=== PATIENT | male | born 1990 | race Caucasian/White ===

== ENCOUNTER 2016-10-01 17:59 | Emergency (ER) | payer OTHER ==
[2016-10-01 18:12] VITALS: BP 144/88; PULSE 73; TEMP 97.6; BMI 28.8
[2016-10-01] MEDS ORDERED: KETOROLAC TROMETHAMINE 60 MG/2 ML VIAL IM ONE (19:05)
[2016-10-01] MEDS ORDERED: KETOROLAC TROMETHAMINE 60 MG/2 ML VIAL ONE (19:10)
--- NOTE | 2016-10-01 19:12 | PDOC ---
History of Present Illness - General Chief Complaint: Pain Stated Complaint: PAIN Time Seen by Provider: 10/01/16 18:43 History Source: Patient Exam Limitations: No Limitations - History of Present Illness Initial Comments: 10/01/16 19:11 Chief complaint: Left chest wall pain with movement and shoveling today. History of present illness: 10/01/16 19:14 He is a 26-year-old male with no significant medical problems here today complaining of left medial chest wall pain when shoveling today. Patient denies any cough. Patient reports that he felt slightly short of breath when he has the pain which is only with movement of chest wall. Patient denies any palpitations. He denies nausea vomiting or diarrhea or any fever. Patient reports that he felt this pain 2 nights ago also patient reports that he had been lifting up his child last 5 years old. 10/01/16 19:15 10/01/16 19:15 Timing/Duration: intermittent Severity: moderate Associated Symptoms: reports: chest pain (left sided chest wall pain ), shortness of breath (when he has the pain slight ) Past History - Past Medical History Allergies/Adverse Reactions: Allergies Allergy/AdvReac Type Severity Reaction Status Date / Time No Known Allergies Allergy Verified 10/01/16 18:00 Home Medications: Ambulatory Orders Naproxen [Naprosyn -] 500 mg PO BID PRN #14 tablet MDD 2 10/01/16 Other medical history: none - Immunization History Immunization Up to Date: Yes - Psycho/Social/Smoking Cessation Hx Anxiety: No Suicidal Ideation: No Smoking History: Never smoked Have you smoked in the past 12 months: No Information on smoking cessation initiated: No Hx Alcohol Use: No Drug/Substance Use Hx: No Substance Use Type: None Review of Systems - Review of Systems Able to Perform ROS?: Yes Constitutional: No: Symptoms Reported HEENTM: No: Symptoms Reported Respiratory: Yes: Shortness of Breath (when he has the chest pain slight only ) . No: SOB with Exertion, SOB at Rest, Stridor, Wheezing, Productive cough Cardiac (ROS): Yes: Chest Pain (left chest medial wall with palpation or movement). No: Symptoms Reported, Palpitations ABD/GI: No: Symptoms Reported : No: Symptoms Reported Musculoskeletal: No: Symptoms Reported Integumentary: No: Symptoms Reported Neurological: No: Symptoms reported *Physical Exam - Vital Signs Last Vital Signs Temp Pulse Resp BP Pulse Ox 97.6 F 73 18 144/88 100 10/01/16 18:00 10/01/16 18:00 10/01/16 18:00 10/01/16 18:00 10/01/16 18:00 - Physical Exam General Appearance: Yes: Appropriately Dressed Neck: negative: Lymphadenopathy (R), Lymphadenopathy (L) Respiratory/Chest: positive: Chest Tender (medial left chest wall discomfort with palpitation to wall), Lungs Clear, Normal Breath Sounds. negative: Respiratory Distress Cardiovascular: positive: Regular Rhythm, Regular Rate, S1, S2 Musculoskeletal: positive: Normal Inspection. negative: CVA Tenderness, CVA Tenderness (R), CVA Tenderness (L) Extremity: positive: Normal Capillary Refill, Normal Inspection, Normal Range of Motion. negative: Tender Integumentary: positive: Normal Color Neurologic: positive: Alert, Normal Response Heart Score/ECG Review - ECG Impressions Comment:: 10/01/16 19:18 EKG reviewed by MD Medical Decision Making - Medical Decision Making 10/01/16 19:15 10/01/16 19:15 He is a 26-year-old male with no significant medical problems here today complaining of left medial chest wall pain when shoveling today. Patient denies any cough. Patient reports that he felt slightly short of breath when he has the pain which is only with movement of chest wall. Patient denies any palpitations. He denies nausea vomiting or diarrhea or any fever. Patient reports that he felt this pain 2 nights ago also patient reports that he had been lifting up his child last 5 years old. He is not suspicious for a PE no tachycardia. No lower leg edema no recent surgeries. Left chest wall discomfort 10/01/16 19:17 acetaminophen 650 mg po now EKG reviewed by MD *DC/Admit/Observation/Transfer Diagnosis at time of Disposition: Acute chest wall pain - Discharge Dispostion Disposition: HOME Condition at time of disposition: Stable - Prescriptions Prescriptions: Naproxen [Naprosyn -] 500 mg PO BID PRN #14 tablet MDD 2 PRN Reason: Pain - Patient Instructions Additional Instructions: Any strenuous activities or exercise Return to emergency room if symptoms worsen any difficulty breathing Do not eat and lie down for at least 2 hours Follow-up with your primary care provider as soon as possible Patient voiced understanding of discharge instructions and all questions were answered
[2016-10-01] MEDS ORDERED: ACETAMINOPHEN 325 MG TABLET (FP) PO ONE (19:13)
[2016-10-01] MEDS ORDERED: ACETAMINOPHEN 325 MG TABLET (FP) ONE (19:16)
--- NOTE | 2016-10-03 10:25 | EKG ---
Test Reason : Blood Pressure : / mmHG Vent. Rate : 075 BPM Atrial Rate : 075 BPM P-R Int : 146 ms QRS Dur : 092 ms QT Int : 366 ms P-R-T Axes : 056 062 028 degrees QTc Int : 408 ms NORMAL SINUS RHYTHM WITH SINUS ARRHYTHMIA NORMAL ECG WHEN COMPARED WITH ECG OF 09-MAY-2016 06:04, NO SIGNIFICANT CHANGE WAS FOUND Confirmed by SAMMY HINES MD ([id number]) on 10/03/2016 10:25:31 AM Referred By: Confirmed By:SAMMY HINES MD
== END 2016-10-01 20:16 | disposition home or self-care (01) ==
LOC: JER 17:59 → JERFT 17:59
PROC: 3E0233Z Introduction of Anti-inflammatory into Muscle, Percutaneous Approach (ICD-10-PCS; principal; 2016-10-01)
DX: R07.89 Other chest pain (principal); X50.0XXA Overexertion from strenuous movement or load, initial encounter; X50.9XXA Other and unspecified overexertion or strenuous movements or postures, initial encounter; Y93.H1 Activity, digging, shoveling and raking; Y92.89 Other specified places as the place of occurrence of the external cause; Y99.8 Other external cause status
CPT/HCPCS: 93005; 93010; 96372; 99281-25

== ENCOUNTER → 2016-11-26 | Emergency (ER) | payer OTHER ==
[~2016-11-26] MED LIST: ACETAMINOPHEN 325 MG TABLET (FP) ONE; ACETAMINOPHEN 325 MG TABLET (FP) PO ONE
[2016-11-26 20:42] VITALS: BP 107/72; PULSE 69; TEMP 98.5; BMI 28.1
--- NOTE | 2016-11-26 21:36 | PDOC ---
History of Present Illness - General History Source: Patient Exam Limitations: No Limitations <Edgard Prado - Last Filed: 11/26/16 21:36> - General History Source: Patient, Old Records Exam Limitations: No Limitations - History of Present Illness Initial Comments: 11/26/16 22:02 The patient is a 26 year old male, with no significant past medical history, who presents to the emergency department with intermittent left sided chest pain with some mild shortness of breath. The patient reports that he has been intermittently experiencing this pain for the past 2 years. This patient was most recently seen in this ED on 10/01/2016 with similar symptoms, was seen and discharged home on Naproxen which he states helped his symptoms significantly. 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 The patient denies a past history or family history of heart disease or cardiac related issues. The patient denies any trauma. The patient denies fever , chills, cough, nausea or vomiting. Allergies: None reported. Past Surgical History: None reported. Social History: Non smoker. Social alcohol consumption. Denies drug use. PCP: Dr. Cruz <Bria Khan - Last Filed: 11/26/16 22:08> - General Chief Complaint: Shortness of Breath Stated Complaint: SOB Time Seen by Provider: 11/26/16 20:57 Past History - Immunization History Immunization Up to Date: Yes - Psycho/Social/Smoking Cessation Hx Anxiety: No Suicidal Ideation: No Smoking History: Never smoked Have you smoked in the past 12 months: No Information on smoking cessation initiated: No Hx Alcohol Use: Yes (social) Drug/Substance Use Hx: No Substance Use Type: None <Edgard Prado - Last Filed: 11/26/16 21:36> <Bria Khan - Last Filed: 11/26/16 22:08> - Past Medical History Allergies/Adverse Reactions: Allergies Allergy/AdvReac Type Severity Reaction Status Date / Time No Known Allergies Allergy Verified 11/26/16 20:40 Home Medications: Ambulatory Orders Naproxen [Naprosyn -] 500 mg PO BID PRN #20 tablet MDD 2 11/26/16 Review of Systems - Review of Systems Able to Perform ROS?: Yes Comments:: 11/26/16 21:51 GENERAL/CONSTITUTIONAL: No fever or chills. No weakness. HEAD, EYES, EARS, NOSE AND THROAT: No change in vision. No ear pain or discharge. No sore throat. CARDIOVASCULAR: +Chest pain, shortness of breath. RESPIRATORY: No cough, wheezing, or hemoptysis. GASTROINTESTINAL: No nausea, vomiting, diarrhea or constipation. GENITOURINARY: No dysuria, frequency, or change in urination. MUSCULOSKELETAL: No joint or muscle swelling or pain. No neck or back pain. SKIN: No rash. NEUROLOGIC: No headache, vertigo, loss of consciousness, or change in strength/ sensation. ENDOCRINE: No increased thirst. No abnormal weight change. HEMATOLOGIC/LYMPHATIC: No anemia, easy bleeding, or history of blood clots. ALLERGIC/IMMUNOLOGIC: No hives or skin allergy. <Bria Khan - Last Filed: 11/26/16 22:08> *Physical Exam - Vital Signs Last Vital Signs Temp Pulse Resp BP Pulse Ox 98.5 F 69 18 107/72 98 11/26/16 20:40 11/26/16 20:40 11/26/16 20:40 11/26/16 20:40 11/26/16 20:40 <Edgard Prado - Last Filed: 11/26/16 21:36> - Vital Signs Last Vital Signs Temp Pulse Resp BP Pulse Ox 98.5 F 69 18 107/72 98 11/26/16 20:40 11/26/16 20:40 11/26/16 20:40 11/26/16 20:40 11/26/16 20:40 - Physical Exam Comments: 11/26/16 21:50 GENERAL: Awake, alert, and fully oriented, in no acute distress. HEAD: No signs of trauma. EYES: PERRLA, EOMI, sclera anicteric, conjunctiva clear. ENT: Auricles normal inspection, hearing grossly normal, nares patent, oropharynx clear without exudates. Moist mucosa. NECK: Normal ROM, supple, no lymphadenopathy, JVD, or masses. LUNGS: Breath sounds equal, clear to auscultation bilaterally. No wheezes, and no crackles. HEART: Regular rate and rhythm, normal S1 and S2, no murmurs, rubs or gallops. CHEST: Reproducible tenderness of the left anterior chest. ABDOMEN: Soft, nontender, normoactive bowel sounds. No guarding, no rebound. No masses. EXTREMITIES: Normal range of motion, no edema. No clubbing or cyanosis. No cords , erythema, or tenderness. NEUROLOGICAL: Cranial nerves II through XII intact. Normal speech, normal gait. SKIN: Warm, dry, normal turgor, no rashes or lesions noted. <Bria Khan - Last Filed: 11/26/16 22:08> Heart Score/ECG Review - History History: Slightly suspicious - Electrocardiogram EKG: Normal - Age Age: </= 45 - Risk Factors Based on the list above the patient has:: No risk factors known #1 ECG reviewed & interpreted by me at: 20:50 11/26/16 21:32 NSR 66, no std/josias, normal axis, normal intervals, QTC 410 msec. Normal ECG <Edgard Prado - Last Filed: 11/26/16 21:36> ED Treatment Course - Medications Given in the ED: ED Medications Discontinued Medications Generic Name Dose Route Start Last Admin Trade Name Freq PRN Reason Stop Dose Admin Acetaminophen 975 mg 11/26/16 21:31 11/26/16 21:34 Tylenol - PO 11/26/16 21:32 975 mg ONCE ONE Administration <Bria Khan - Last Filed: 11/26/16 22:08> Medical Decision Making - Medical Decision Making 11/26/16 21:32 A portion of this note was documented by scribe services under my direction. I have reviewed the details of the note, within reason, and agree with the documentation with the following case summary and management plan written by me. Patient treated in the ED. Nursing notes are reviewed and incorporated into the medical decision-making. Vital signs reviewed. Peripheral IV access obtained by the nurse, laboratory studies are drawn and sent, reviewed and interpreted by myself. Vital Signs Temp Pulse Resp BP Pulse Ox 98.5 F 69 18 107/72 98 11/26/16 20:40 11/26/16 20:40 11/26/16 20:40 11/26/16 20:40 11/26/16 20:40 26-year-old male patient with no past medical history presents with atypical chest pain. Patient reports that he's been having this pain for over 2 years and is intermittent with no exertional component. 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 Patient notes that he was doing nothing particular when he felt this reproducible left-sided chest pain with some shortness of breath that improved with 800 mg ibuprofen. He denies any smoking history. Denies any family history of cardiac disease. Reports that this pain comes and goes and that he has seen his primary care physician reported that this is atypical. Prior visit to the immersed department demonstrates atypical chest pain. I agree. This is likely muscle skeletal given the reproducible nature. The patient 's EKG is normal. I instructed the patient that he may benefit from physical therapy and should follow with his primary care physician. We'll give a prescription of naproxen have the patient follow-up with their primary care physician. I discussed the physical exam findings, ancillary test results and final diagnoses with the patient. I answered all of the patient's questions. The patient was satisfied with the care received and felt comfortable with the discharge plan and treatment plan. The patient will call their primary care physician within 24 hours to arrange follow-up and will return to the Emergency Department with any new, persistant or worsening symptoms. <Edgard Prado - Last Filed: 11/26/16 21:36> *DC/Admit/Observation/Transfer - Discharge Dispostion Admit: No <Edgard Prado - Last Filed: 11/26/16 21:36> - Attestations Scribe Attestion: 11/26/16 21:47 Documentation prepared by Bria Khan, acting as medical secretary for Edgard Prado MD. <Bria Khan - Last Filed: 11/26/16 22:08> Diagnosis at time of Disposition: Acute chest wall pain - Discharge Dispostion Disposition: HOME Condition at time of disposition: Stable - Prescriptions Prescriptions: Naproxen [Naprosyn -] 500 mg PO BID PRN #20 tablet MDD 2 PRN Reason: Pain - Referrals Referrals: Maxim Cruz [Primary Care Provider] - - Patient Instructions Printed Discharge Instructions: DI for Atypical Chest Pain, DI for Musculoskeletal Pain Additional Instructions: This is likely muscle skeletal pain. Please take 500 mg of naproxen every 12 hours needed for pain. Please follow-up with your primary care physician. You may need develops a stretching exercise or potentially physical therapy.
--- NOTE | 2016-11-28 17:16 | EKG ---
Test Reason : Blood Pressure : / mmHG Vent. Rate : 066 BPM Atrial Rate : 066 BPM P-R Int : 154 ms QRS Dur : 096 ms QT Int : 392 ms P-R-T Axes : 063 079 050 degrees QTc Int : 410 ms POOR DATA QUALITY, INTERPRETATION MAY BE ADVERSELY AFFECTED NORMAL SINUS RHYTHM WITH SINUS ARRHYTHMIA NORMAL ECG WHEN COMPARED WITH ECG OF 01-OCT-2016 18:05, NO SIGNIFICANT CHANGE WAS FOUND Confirmed by HALLIE LIN MD ([id number]) on 11/28/2016 5:16:24 PM Referred By: Confirmed By:HALLIE LIN MD
== END | disposition home or self-care (01) ==
LOC: JER 20:28
DX: R07.89 Other chest pain (principal)
CPT/HCPCS: 93005; 93010; 99281-25

== ENCOUNTER 2016-12-15 21:42 | Emergency (ER) | payer OTHER ==
[2016-12-15 21:56] VITALS: BP 126/83; PULSE 55; TEMP 97.9; BMI 29.2
== END 2016-12-15 23:08 | disposition home or self-care (01) ==
LOC: SUPCPDRO 21:42 → JERFT 21:42
DX: J45.909 Unspecified asthma, uncomplicated (principal)
CPT/HCPCS: 99281-25

== ENCOUNTER 2017-02-05 19:03 | Emergency (ER) | payer OTHER ==
[2017-02-05 19:16] VITALS: TEMP 98; BMI 24.3
--- NOTE | 2017-02-05 19:36 | PDOC ---
History of Present Illness - General History Source: Patient Exam Limitations: No Limitations - History of Present Illness Initial Comments: 02/05/17 20:02 Patient is a 27 year old male with no significant past medical history who presents to the ED with chest pain, back pain and dizziness. Patient reports intermittent chest pain localized to the left upper chest, 6/10, non pleuritic, exacerbated by sitting down. Patient notes that the back pain is localized to the left upper back that is constant and started yesterday. Patient states that he developed dizziness today. Patient states that he had a colonoscopy done yesterday and was told he has hemorrhoids, patient states that he had the following symptoms before the colonoscopy. He denies taking any tylenol or advil to alleviate the symptoms. He denies fever, chills, or cough. HPI obtained using sound effects technician [id number]. <Carissa Garcias - Last Filed: 02/05/17 20:02> - General History Source: Patient Exam Limitations: No Limitations <Gali Garcia - Last Filed: 02/05/17 21:27> - General Chief Complaint: Chest Pain Stated Complaint: BACK PAIN Time Seen by Provider: 02/05/17 19:34 Past History <Carissa Garcias - Last Filed: 02/05/17 20:02> - Past Medical History Asthma: Yes GI Disorders: Yes (Fatty liver?) HTN: Yes (Borderline) Hypercholesterolemia: Yes (Borderline) - Immunization History Immunization Up to Date: Yes - Psycho/Social/Smoking Cessation Hx Anxiety: No Suicidal Ideation: No Smoking History: Never smoked Have you smoked in the past 12 months: No Information on smoking cessation initiated: No Hx Alcohol Use: No Drug/Substance Use Hx: No Substance Use Type: None <Gali Garcia - Last Filed: 02/05/17 21:27> - Past Medical History Allergies/Adverse Reactions: Allergies Allergy/AdvReac Type Severity Reaction Status Date / Time No Known Allergies Allergy Verified 02/05/17 19:11 Home Medications: Ambulatory Orders NK [No Known Home Medication] 02/05/17 Review of Systems - Review of Systems Able to Perform ROS?: Yes Comments:: 02/05/17 20:03 GENERAL/CONSTITUTIONAL: No: fever, chills, weakness, loss of appetite. HEAD, EYES, EARS, NOSE AND THROAT: No: change in vision, ear pain, discharge, sore throat, throat swelling. CARDIOVASCULAR: chest pain No: lightheadedness, palpitations, syncope RESPIRATORY: No: cough, shortness of breath, wheezing, hemoptysis, stridor. GASTROINTESTINAL: No: nausea, vomiting, abdominal cramping, diarrhea, rectal bleeding, constipation. GENITOURINARY: No: dysuria, hematuria, frequency, urgency, flank pain. MUSCULOSKELETAL: back pain. No: neck pain, joint pain, muscle swelling or pain SKIN: No: lesions, pallor, rash or easy bruising. NEUROLOGIC: dizziness. No: headache, vertigo, paresthesias, weakness ENDOCRINE: No: unexplained weight gain or loss HEMATOLOGIC/LYMPHATIC: No: anemia, easy bleeding, swelling nodes <Carissa Garcias - Last Filed: 02/05/17 20:02> *Physical Exam - Vital Signs Last Vital Signs Temp Pulse Resp BP Pulse Ox 98.0 F 71 19 140/77 100 02/05/17 19:12 02/05/17 19:12 02/05/17 19:12 02/05/17 19:12 02/05/17 19:12 - Physical Exam Comments: 02/05/17 20:04 GENERAL: The patient is in no acute distress. HEAD: Normal with no signs of trauma. EYES: PERRLA, EOMI, sclera anicteric, conjunctiva clear. ENT: Ears normal, nares patent, oropharynx clear without exudates. Moist mucous membranes. NECK: Normal range of motion, supple without lymphadenopathy, JVD, or masses. LUNGS: Breath sounds equal, clear to auscultation bilaterally. No wheezes, and no crackles. HEART:Regular rate and rhythm, normal S1 and S2 without murmur, rub or gallop. ABDOMEN: Soft, nontender, normoactive bowel sounds. No guarding, no rebound. EXTREMITIES: Normal range of motion, no edema. No clubbing or cyanosis. No erythema, or tenderness. NEUROLOGICAL: Cranial nerves II through XII grossly intact. Normal speech. No focal neurological deficits. MUSCULOSKELETAL: Back nontender to palpation, no CVA tenderness SKIN: Warm, Dry, normal turgor, no rashes or lesions noted. <Carissa Garcias - Last Filed: 02/05/17 20:02> - Vital Signs Last Vital Signs Temp Pulse Resp BP Pulse Ox 98.0 F 71 19 140/77 100 02/05/17 19:12 02/05/17 19:12 02/05/17 19:12 02/05/17 19:12 02/05/17 19:12 <Gali Garcia - Last Filed: 02/05/17 21:27> Heart Score/ECG Review #1 ECG reviewed & interpreted by me at: 20:06 General ECG Interpretation: Sinus Rhythm, Normal Rate, Normal Intervals, No acute ischemic changes <Gali Garcia - Last Filed: 02/05/17 21:27> ED Treatment Course - LABORATORY CBC & Chemistry Diagram: 02/05/17 20:09 02/05/17 20:09 <Gali Garcia - Last Filed: 02/05/17 21:27> Medical Decision Making - Medical Decision Making 02/05/17 19:35 A portion of this note was documented by scribe services under my direction. I have reviewed the details of the note, within reason, and agree with the documentation with the following case summary and management plan written by me. 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 Will do: CXR Blood pressure both arms EKG Will give motrin for pain Will re assess PERC score negative, I do not believe this is a PE 02/05/17 20:01 02/05/17 20:06 BP: Right arm - 118/69 Left arm - 126/84 pulse 57 02/05/17 20:40 Laboratory Tests 02/05/17 20:09 WBC 8.1 Hgb 14.5 Hct 43.3 Plt Count 154 Neutrophils % 50.9 Lymphocytes % 35.0 02/05/17 21:20 02/05/17 21:20 Laboratory Tests 02/05/17 20:09 Sodium 141 Potassium 4.0 Chloride 104 Carbon Dioxide 26 BUN 17 D Creatinine 0.9 Random Glucose 89 D Creatine Kinase 256 D CK-MB (CK-2) 1.502 Troponin I < 0.02 CXR: no consolidation, no effusion, no pneumothorax Will discharge to home Pt to follow up with PMD I discussed the physical exam findings, ancillary test results and final diagnoses with the patient. I answered all of the patient's questions. The patient was satisfied with the care received and felt comfortable with the discharge plan and treatment plan. The patient will call their primary care physician within 24 hours to arrange follow-up and will return to the Emergency Department with any new, persistent or worsening symptoms. <Gali Garcia - Last Filed: 02/05/17 21:27> *DC/Admit/Observation/Transfer - Attestations Scribe Attestion: 02/05/17 20:05 Documentation prepared by TWYLA Danielle, acting as medical file clerk for Gali Garcia MD. <Carissa Garcias - Last Filed: 02/05/17 20:02> - Discharge Dispostion Admit: No <Gali Garcia - Last Filed: 02/05/17 21:27> Diagnosis at time of Disposition: Chest pain Qualifiers: Chest pain type: unspecified Qualified Code(s): R07.9 - Chest pain, unspecified - Discharge Dispostion Disposition: HOME Condition at time of disposition: Stable - Referrals Referrals: Maxim Cruz [Primary Care Provider] - - Patient Instructions Printed Discharge Instructions: DI for Atypical Chest Pain, DI for Chest Pain Additional Instructions: Joe por venir a la perla de emergencias esta noche [employer] Por favor, siga con mckee mdico de atencin primaria Si tiene dolor, considere radha motrin o tylenol para el dolor Puede volver a la perla de emergencias para cualquier otra preocupacin o queja Thank you for coming in to the ER tonight Please review your labs Please follow up with your primary care physician If you have pain, consider taking motrin or tylenol for pain you can return to the ER for any other concerns or complaints - Post Discharge Activity Work/School Note: Back to Work
[2017-02-05] MEDS ORDERED: IBUPROFEN 600 MG TABLET (FP) PO ONE ×2 (19:54→20:10)
[2017-02-05 20:15] LABS: BASOPHIL 0.8 % (0-2.0); EOSINOPHIL 6.7 % (0-4.5); MCH 29.2 pg (25.7-33.7); MCHC 33.5 g/dl (32.0-35.9); MEAN CELL VOLUME 87.1 fl (80-96); MEAN PLT VOLUME 10.1 fl (7.5-11.1); NEUTROPHILS 50.9 % (42.8-82.8); PLATELET COUNT 154 K/MM3 (134-434); RDW 13.3 % (11.9-15.9); WHITE BLOOD COUNT 8.1 K/mm3 (4.0-10.0)
[2017-02-05 20:47] LABS: ALBUMIN 4.5 g/dl (3.4-5.0); ANION GAP 11 (8-16); BILIRUBIN,TOTAL 0.4 mg/dL (0.2-1.0); CALCIUM 8.7 mg/dL (8.5-10.1); CO2 26 mmol/L (21-32); CREATININE 0.9 mg/dL (0.7-1.3); GLUCOSE,RANDOM 89 mg/dL (74-106); SGOT/AST 18 U/L (15-37); SGPT/ALT 29 U/L (12-78); TOT PROT 7.1 g/dl (6.4-8.2)
[2017-02-05 20:49] LABS: ALK PHOS 80 U/L (45-117); TROPONIN I < 0.02 ng/ml (0.00-0.05)
[2017-02-05 21:38] VITALS: BP 132/69; PULSE 63
--- NOTE | 2017-02-14 12:56 | EKG ---
Test Reason : Blood Pressure : / mmHG Vent. Rate : 060 BPM Atrial Rate : 060 BPM P-R Int : 144 ms QRS Dur : 096 ms QT Int : 392 ms P-R-T Axes : 030 081 059 degrees QTc Int : 392 ms NORMAL SINUS RHYTHM NORMAL ECG WHEN COMPARED WITH ECG OF 26-NOV-2016 20:49, NO SIGNIFICANT CHANGE WAS FOUND Confirmed by YOGESH CAMARILLO MD ([id number]) on 02/14/2017 12:56:15 PM Referred By: Confirmed By:YOGESH CAMARILLO MD
== END 2017-02-05 21:37 | disposition home or self-care (01) ==
LOC: JER 19:03
DX: R07.9 Chest pain, unspecified (principal)
CPT/HCPCS: 36415; 71020-TC; 80053; 82550; 82553; 84484; 85025; 93005; 93010; 99283-25